=== PATIENT | male | born 1990 | race African-American/Black ===

== ENCOUNTER 2017-03-18 08:13 | Emergency (ER) | payer OTHER, SELFPAY ==
[2017-03-18] MEDS ORDERED: Budesonide 0.5 MG/2 ML NEB ONE (08:49)
--- NOTE | 2017-03-18 09:06 | RAD ---
CHEST PA AND LATERAL: HISTORY: A 27-year-old male with cough and congestion for one week, getting worse. COMPARISON: 01/03/2012 FINDINGS: Heart size is within normal limits. Lungs are clear. IMPRESSION: No acute intrathoracic disease. POS: [facility]
[2017-03-18] MEDS ORDERED: cloNIDine 0.1 MG TAB ONE (09:55)
[2017-03-18] MEDS ORDERED: Dexamethasone 10 MG/ML VIAL ONE (09:55)
== END 2017-03-18 10:23 | disposition home or self-care (01) ==
LOC: SCSER 08:13
DX: J20.9 Acute bronchitis, unspecified (principal); J10.1 Influenza due to other identified influenza virus with other respiratory manifestations; I10 Essential (primary) hypertension; F17.210 Nicotine dependence, cigarettes, uncomplicated
CPT/HCPCS: 71020; 96372; J1100; J7620; J7626

== ENCOUNTER 2017-09-21 07:31 | Emergency (ER) | payer BC, OTHER | END 2017-09-21 08:55 | disposition home or self-care (01) | LOC: ERS 07:31 | DX: J32.9 Chronic sinusitis, unspecified (principal); F17.210 Nicotine dependence, cigarettes, uncomplicated | CPT/HCPCS: 87081; 87430; 99406 ==

== ENCOUNTER 2017-11-21 21:44 | Emergency (ER) | payer BC ==
[2017-11-21] MEDS ORDERED: Ketorolac Tromethamine 60 MG/2 ML VIAL ONE (22:49)
--- NOTE | 2017-11-21 22:50 | RAD ---
FOUR VIEWS LEFT KNEE: Comparison: None. History: Knee pain, swelling. FINDINGS: No knee joint effusion, fracture, or evidence of dislocation. IMPRESSION: No acute findings. POS: [facility]
== END 2017-11-21 23:13 | disposition home or self-care (01) ==
LOC: ERS 21:44
DX: M25.562 Pain in left knee (principal); E11.9 Type 2 diabetes mellitus without complications; Z87.891 Personal history of nicotine dependence; Z79.84 Long term (current) use of oral hypoglycemic drugs
CPT/HCPCS: 96372; J1885

== ENCOUNTER 2017-12-27 08:28 | Emergency (ER) | payer BC ==
--- NOTE | 2017-12-27 09:28 | RAD ---
AP VIEW CHEST: HISTORY: Cough. FINDINGS: AP view chest is obtained on 12/27/17. Comparison is made to previous exam from 08/02/11. AP view chest demonstrates the lungs to be well aerated. No evidence of active intrathoracic disease is seen. No evidence of effusions, pneumonia, or pneumothorax is seen. IMPRESSION: Unremarkable AP view chest. POS: [facility]
--- NOTE | 2017-12-27 09:58 | RAD ---
RADIOGRAPH CHEST 2 VIEWS: HISTORY: 27-year-old male with cough. FINDINGS: There is no air space density, pulmonary edema, pleural effusion, pneumothorax, or cardiomegaly. IMPRESSION: No acute cardiopulmonary findings. [facility] POS: [facility]
[2017-12-27] MEDS ORDERED: predniSONE 20 MG TAB ONE (10:01)
== END 2017-12-27 10:29 | disposition home or self-care (01) ==
LOC: ERS 08:28
DX: J45.901 Unspecified asthma with (acute) exacerbation (principal); E11.9 Type 2 diabetes mellitus without complications; Z87.891 Personal history of nicotine dependence; Z79.84 Long term (current) use of oral hypoglycemic drugs
CPT/HCPCS: 71045; 71046; 94640; J7506; J7620

== ENCOUNTER 2018-02-16 17:25 | Emergency (ER) | payer OTHER, BC ==
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
[2018-02-16] MEDS ORDERED: Ketorolac Tromethamine 60 MG/2 ML VIAL ONE (19:19)
--- NOTE | 2018-02-18 18:09 | EKG ---
Test Reason : Blood Pressure : / mmHG Vent. Rate : 089 BPM Atrial Rate : 089 BPM P-R Int : 162 ms QRS Dur : 092 ms QT Int : 332 ms P-R-T Axes : 046 052 010 degrees QTc Int : 403 ms Normal sinus rhythm Normal ECG Confirmed by DUSTY SALDAÑA D.O. ([id number]), news editor CARRIE STONE ([id number] on 02/18/2018 6:09:12 PM Referred By: Confirmed By:DUSTY SALDAÑA D.O.
== END 2018-02-16 19:43 | disposition home or self-care (01) ==
LOC: ERS 17:25
DX: R07.89 Other chest pain (principal); E11.9 Type 2 diabetes mellitus without complications; F17.210 Nicotine dependence, cigarettes, uncomplicated; Z79.84 Long term (current) use of oral hypoglycemic drugs; V49.9XXA Car occupant (driver) (passenger) injured in unspecified traffic accident, initial encounter
CPT/HCPCS: 71046; 93005; 96372; J1885

== ENCOUNTER 2018-09-22 08:31 | Emergency (ER) | payer BC ==
--- NOTE | 2018-09-22 08:52 | RAD ---
EXAM: Chest PA and lateral: HISTORY: Chest pain COMPARISON: 02/16/2018 FINDINGS: Lung mortensen are clear. Vascular markings are normal. Heart and mediastinum appear unremarkable. Vascularity is normal. Osseous structures are unremarkable. IMPRESSION: Unremarkable chest
[2018-09-22 09:40] LABS: #Basophils 0.1 thou/uL (0.0-0.2); #Eosinphils 0.3 thou/uL (0.0-0.7); #Lymphocytes 1.7 thou/uL (1.20-3.40); #Monocytes 0.4 thou/uL (0.11-0.59); #Neutrophils 4.2 thou/uL (1.40-6.50); %Eosinophils 3.9 % (0.0-10.0); %Lymphocytes 26.4 % (21.0-51.0); %Monocytes 5.3 % (0.0-10.0); %Neutrophils 63.5 % (42.0-75.0); Hemoglobin 13.9 g/dL (14.0-18.0); Mean Corpuscular HGB CONC 32.8 g/dL (32.0-36.0); Mean Corpuscular Hemoglobin 28.4 pg (27.0-31.0); Mean Corpuscular Volume 86.5 fL (78.0-98.0); Mean Platelet Volume 7.8 fL (7.4-10.4); Platelet Count 242 thou/uL (130-400); RBC Distribution Width 11.5 % (11.5-14.5); Red Blood Cell (RBC) Count 4.92 mill/uL (4.70-6.10); White Blood Cell (WBC) Count 6.6 thou/uL (4.8-10.8)
[2018-09-22 10:05] LABS: ALT (SGPT) 63 U/L (8-55); AST (SGOT) 48 U/L (5-34); Alkaline Phosphatase 45 U/L (40-150); Anion Gap 12 mmol/L (10-20); BUN (Urea Nitrogen) 11 mg/dL (8.9-20.6); Bilirubin, Total 0.4 mg/dL (0.2-1.2); CK (CPK) 309 U/L (30-200); Calc. Creatinine Clearance 0 mL/min (70-130); Calcium 9.4 mg/dL (7.8-10.44); Carbon Dioxide 27 mmol/L (22-29); Chloride 99 mmol/L (98-107); Estimated GFR-MDRD Greater than 90; Globulin 2.9 g/dL (2.4-3.5); Glucose 334 mg/dL (70-105); Potassium 4.7 mmol/L (3.5-5.1); Protein, Total 6.9 g/dL (6.0-8.3); Sodium 133 mmol/L (136-145)
== END 2018-09-22 10:31 | disposition home or self-care (01) ==
LOC: ERS 08:31
DX: R07.9 Chest pain, unspecified (principal); E11.9 Type 2 diabetes mellitus without complications; F17.210 Nicotine dependence, cigarettes, uncomplicated
CPT/HCPCS: 36415; 71046; 80053; 82550; 84484; 85025; 93005

== ENCOUNTER 2019-11-22 10:27 | Emergency (ER) | payer BC, OTHER ==
[2019-11-23 12:54] LABS: SARS-CoV-2 MS2 Positive; SARS-CoV-2 N Gene Negative; SARS-CoV-2 S Gene Negative; SARS-CoV-2 orf1ab Negative
== END 2019-11-22 10:41 | disposition home or self-care (01) ==
LOC: ERS 10:27
DX: Z20.828 Contact with and (suspected) exposure to other viral communicable diseases (principal); E11.9 Type 2 diabetes mellitus without complications
CPT/HCPCS: 87635; 99283; U0003